=== PATIENT | male | born 1975 ===

== ENCOUNTER 2022-03-25 23:35 | Emergency (ER) | payer BC ==
[2022-03-26 01:41] LABS: SARS-CoV-2 NAA Rapid Test Not Detected (NotDetected)
[2022-03-26] MEDS ORDERED: Fentanyl 100 MCG/2 ML VIAL ONE (01:55)
[2022-03-26] MEDS ORDERED: PROPOFOL 20 ML ONE (01:55)
[2022-03-26] MEDS ORDERED: Midazolam HCl 2 mg/2 ml Vial ONE (01:55)
[2022-03-26] MEDS ORDERED: Succinylcholine 200 MG/10 ml SYRINGE FS ONE (01:59)
[2022-03-26] MEDS ORDERED: Lidocaine 1% PF 5 ML VIAL ONE (01:59)
[2022-03-26] MEDS ORDERED: Rocuronium Bromide 10 MG/ML (10ML VIAL) ONE (02:27)
[2022-03-26] MEDS ORDERED: Glycopyrrolate 0.2 MG/ML 5 ML SYRINGE ONE (02:34)
== END 2022-03-26 02:09 | disposition admitted as inpatient to this hospital (09) ==
LOC: CSHERS 23:35
DX: T18.128A Food in esophagus causing other injury, initial encounter (principal); Z20.822 Contact with and (suspected) exposure to COVID-19
CPT/HCPCS: 96374; J1610; J2250; J2704; J3010; U0002